=== PATIENT | male | born 1955 | race Caucasian/White ===

== ENCOUNTER 2017-03-05 10:52 | Emergency (ER) | payer OTHER ==
[~2017-03-05 10:52] MED LIST: ASPI325T PO; LORTA10 PO; LORTA5 PO
[2017-03-05 10:53] VITALS: BP 183/94; PULSE 102; RESP 17; TEMP 98.3; O2SAT 97
--- NOTE | 2017-03-05 11:35 | PD ---
HPI Chief Complaint: GI Complaint Time Seen by Provider: 11:35 Travel History International Travel<30 days: No Contact w/Intl Traveler<30days: No Traveled to known affect area: No History of Present Illness HPI 61 YO male presents to the ED for evaluation of 6 month history of left-sided back and flank pain. Gradual onset. Patient denies fevers, chills, anorexia, chest pain, shortness breath, cough, abdominal pain, nausea, vomiting, diarrhea , melena, hematochezia, dysuria. He endorses several chronic orthopedic complaints. The patient states that the pain has worsened over the last 16 days. He was evaluated at urgent care on 02/18 found to have a compression fracture of T11. He was evaluated a second time at [facility] on 02/28 and states no specific diagnoses was given. He states that in the interim his left upper abdomen is "swollen." The patient denies chronic health problems. PFSH Past Medical History Heart Rhythm Problems: No Cardiovascular Problems: Yes High Cholesterol: Yes Chest Pain: Yes Congestive Heart Failure: No Endocrine: No Genitourinary: No Hypertension: Yes Inguinal Hernia: Yes Musculoskeletal: Yes (chronic back pain) Psychiatric: No Reproductive: No Respiratory: No Past Surgical History Abdominal Surgery: Yes (HERNIA REPAIR) Genitourinary Surgery: Yes (VASECTOMY) Other Surgery: Yes (josselyn hernia surgery, left leg pins) Social History Alcohol Use: No Tobacco Use: No Substance Use: No Allergies-Medications (Allergen,Severity, Reaction): Coded Allergies: Baclofen (Verified Allergy, Mild, Dizziness, 03/05/17) HMG-CoA Reductase Inhibitors (Verified Adverse Reaction, Mild, Joint Pain , 03/05/17) muscle soreness Reported Meds & Prescriptions Reported Meds & Active Scripts Active Reported Breeding (Hydrocodone-Acetaminophen) 5-325 mg Tab 1 Tab PO Q6H PRN Aspirin 325 Mg Tab 325 Mg PO DAILY Review of Systems Except as stated in HPI: all other systems reviewed are Neg Physical Exam Narrative GENERAL: Well-nourished, well-developed nontoxic appearing white male in no acute distress. SKIN: Focused skin assessment warm/dry. HEAD: Normocephalic. EYES: No scleral icterus. No injection or drainage. NECK: Supple, trachea midline. No JVD or lymphadenopathy. CARDIOVASCULAR: Regular rate and rhythm without murmurs, gallops, or rubs. RESPIRATORY: Breath sounds clear and equal bilaterally. No accessory muscle use. GASTROINTESTINAL: Abdomen soft, non-tender, nondistended. No hepatosplenomegaly. No palpable mass. Active bowel sounds. There is a small out pouching of the left flank just below the bottom rib. This is nontender. No erythema. MUSCULOSKELETAL: No cyanosis, or edema. Patient is ambulatory, walks with a normal gait, moves extremities spontaneously. BACK: Nontender without obvious deformity. No CVA tenderness. Point tenderness on the lower ribs of the mid back. Data Data Last Documented VS Vital Signs Date Time Temp Pulse Resp B/P Pulse Ox O2 Delivery O2 Flow Rate FiO2 03/05/17 10:53 98.3 102 17 183/94 97 Orders Complete Blood Count With Diff (03/05/17 12:11) Comprehensive Metabolic Panel (03/05/17 12:11) Prothrombin Time / Inr (Pt) (03/05/17 12:11) Act Partial Throm Time (Ptt) (03/05/17 12:11) Urinalysis - C+S If Indicated (03/05/17 12:11) Iv Access Insert/Monitor (03/05/17 12:11) Sodium Chloride 0.9% Flush (Ns Flush) (03/05/17 12:15) Chest, Single Ap (03/05/17 ) Labs Laboratory Tests Test 03/05/17 13:00 White Blood Count 6.1 TH/MM3 Red Blood Count 4.52 MIL/MM3 Hemoglobin 14.1 GM/DL Hematocrit 41.8 % Mean Corpuscular Volume 92.5 FL Mean Corpuscular Hemoglobin 31.2 PG Mean Corpuscular Hemoglobin 33.8 % Concent Red Cell Distribution Width 13.8 % Platelet Count 221 TH/MM3 Mean Platelet Volume 10.1 FL Neutrophils (%) (Auto) 61.7 % Lymphocytes (%) (Auto) 26.6 % Monocytes (%) (Auto) 10.1 % Eosinophils (%) (Auto) 0.9 % Basophils (%) (Auto) 0.7 % Neutrophils # (Auto) 3.7 TH/MM3 Lymphocytes # (Auto) 1.6 TH/MM3 Monocytes # (Auto) 0.6 TH/MM3 Eosinophils # (Auto) 0.1 TH/MM3 Basophils # (Auto) 0.0 TH/MM3 CBC Comment DIFF FINAL Differential Comment Prothrombin Time 10.7 SEC Prothromb Time International 1.0 RATIO Ratio Activated Partial 28.0 SEC Thromboplast Time Urine Color YELLOW Urine Turbidity CLEAR Urine pH 7.5 Urine Specific [place] 1.016 Urine Protein NEG mg/dL Urine Glucose (UA) NEG mg/dL Urine Ketones NEG mg/dL Urine Occult Blood NEG Urine Nitrite NEG Urine Bilirubin NEG Urine Urobilinogen LESS THAN 2.0 MG/DL Urine Leukocyte Esterase NEG Urine RBC 1 /hpf Urine WBC 1 /hpf Microscopic Urinalysis Comment CULT NOT INDICATED Sodium Level 141 MEQ/L Potassium Level 4.6 MEQ/L Chloride Level 106 MEQ/L Carbon Dioxide Level 28.7 MEQ/L Anion Gap 6 MEQ/L Blood Urea Nitrogen 12 MG/DL Creatinine 0.82 MG/DL Estimat Glomerular Filtration 96 ML/MIN Rate Random Glucose 90 MG/DL Calcium Level 8.9 MG/DL Total Bilirubin 0.4 MG/DL Aspartate Amino Transf 21 U/L (AST/SGOT) Alanine Aminotransferase 31 U/L (ALT/SGPT) Alkaline Phosphatase 98 U/L Total Protein 7.3 GM/DL Albumin 4.0 GM/DL [facility] Medical Decision Making Medical Screen Exam Complete: Yes Emergency Medical Condition: Yes Differential Diagnosis musculoskeletal pain versus rib fracture versus referred pain versus AAA versus splenomegaly versus renal mass versus other Narrative Course 61-year-old male presents to the ED for evaluation of 6 month history of left- sided back and flank pain. His only complaint is pain and he denies other somatic symptoms. Patient has been evaluated at an urgent care at outside hospital before presenting today. Vitals reviewed. Physical examination does reveal point tenderness noted left posterior lower rib cage. He does seem to be a little outpouching underneath the left anterior lateral rib but is no palpable mass or tenderness to palpation and deep palpation of the spleen reveals blood megaly or tenderness. I reviewed the patient's CT report of from [facility]. No pancreatic mass or fluid collection is noted. Renal cyst measuring about 4.5 cm on the left side noted and unchanged from comparison study of 04/26/2016. There is no hydronephrosis or nephrolithiasis. No abdominal aortic aneurysm noted. Note is made of a collapsed L1 vertebral body which is old and unchanged per the radiologist. Overall, no acute abnormalities. CBC, CMP, coags, UA unremarkable here. CXR reveals no acute disease per radiology read. I can find no emergent or urgent source for this pain. Patient's instructed to continue with outpatient pain medications, follow up with his primary care provider for further evaluation. They will discharged home. Diagnosis Primary Impression: Chronic back pain Qualified Code: M54.9 - Other chronic back pain Referrals: Primary Care Physician Additional Instructions: Rest, hydrate. Do not believe this back pain is of an emergent nature, follow up with your primary care provider for further evaluation of this chronic problem. Return to the ED for worsening symptoms, or any urgent or emergent medical condition. Disposition: 01 DISCHARGE HOME Condition: Stable Mehnaz Gomez Mar 05, 2017 11:35
[2017-03-05] MEDS ORDERED: NORC5TAB PO (11:44)
[2017-03-05] MEDS ORDERED: ASPI325T PO (11:44)
[2017-03-05] MEDS ORDERED: SODIUM CHLORIDE 0.9% FLUSH 10 ML FLUSH IV FLUSH PRN (12:15)
--- NOTE | 2017-03-05 12:38 | RADRPT ---
EXAM DATE/TIME: 03/05/2017 12:08 [facility] COMPARISON: CHEST SINGLE AP, May 30, 2014, 15:39. INDICATIONS : Left posterior chest pain MEDICAL HISTORY : None. SURGICAL HISTORY : None. ENCOUNTER: Initial ACUITY: 4 - 6 months PAIN SCORE: 6/10 LOCATION: Left chest FINDINGS: A single view of the chest demonstrates the lungs to be symmetrically aerated without evidence of mas s, infiltrate or effusion. The cardiomediastinal contours are unremarkable. Osseous structures are intact. CONCLUSION: No acute disease. No significant change has occurred. Olivier Dolan MD on March 05, 2017 at 12:36 Board Certified Radiologist. This report was verified electronically.
[2017-03-05 13:32] LABS: BLOOD, URINE NEG (NEG); COMMENT (UR) CULT NOT INDICATED; CULTURE IF INDICATED CULT NOT INDICATED; GLUCOSE,URINE NEG (NEG); KETONE, URINE NEG (NEG); NITRITE,URINE NEG (NEG); PH, URINE 7.5 (5.0-8.5); URINE COLOR YELLOW (YELLW/STRAW)
[2017-03-05 13:33] LABS: AUTOMATED NEUTROPHIL # 3.7 TH/MM3 (1.8-7.7); BASOPHIL % 0.7 % (0.0-2.0); EOSINOPHIL # 0.1 TH/MM3 (0-0.4); EOSINOPHIL % 0.9 % (0.0-4.0); HEMATOCRIT 41.8 % (39.0-51.0); HEMO FLAGS DIFF FINAL; LYMPH % 26.6 % (9.0-44.0); LYMPHOCYTE # 1.6 TH/MM3 (1.0-4.8); MEAN CELL VOLUME 92.5 FL (80.0-100.0); MEAN CORPUSCULAR HEMOGLOBIN 31.2 PG (27.0-34.0); MEAN CORPUSCULAR HGB CONC 33.8 % (32.0-36.0); MONO % 10.1 % (0.0-8.0); NEUT % 61.7 % (16.0-70.0); PLATELET COUNT 221 TH/MM3 (150-450); RED BLOOD COUNT 4.52 MIL/MM3 (4.50-5.90); RED CELL DISTRIBUTION WIDTH 13.8 % (11.6-17.2); WHITE BLOOD COUNT 6.1 TH/MM3 (4.0-11.0)
[2017-03-05 13:38] LABS: PROTHROMBIN TIME - PATIENT 10.7 SEC (9.8-11.6)
[2017-03-05 13:49] LABS: ALT (GPT) 31 U/L (12-78); ANION GAP 6 MEQ/L (5-15); AST (GOT) 21 U/L (15-37); BICARBONATE 28.7 MEQ/L (21.0-32.0); BLOOD UREA NITROGEN 12 MG/DL (7-18); CHLORIDE 106 MEQ/L (98-107); GLOMERULAR FILTRATION RATE 96 ML/MIN (>89); POTASSIUM 4.6 MEQ/L (3.5-5.1); SODIUM (NA) 141 MEQ/L (136-145)
[2017-03-05 13:51] LABS: ALKALINE PHOSPHATASE 98 U/L (45-117); TOTAL BILIRUBIN ADULT 0.4 MG/DL (0.2-1.0)
[2017-03-05 14:33] VITALS: BP 123/84; PULSE 66; RESP 15; O2SAT 96
[2017-03-05 14:34] VITALS: BP 123/84
== END 2017-03-05 15:44 | disposition home or self-care (01) ==
LOC: NEPD 10:52
DX: M54.9 Dorsalgia, unspecified (principal); G89.29 Other chronic pain
CPT/HCPCS: 71010; 80053; 81001; 85025; 85610; 85730; 99284

== ENCOUNTER → 2017-10-19 | Outpatient (CLI) | payer OTHER ==
[~2017-10-19] MED LIST changes: +ASPI-183 PO; -ASPI325T PO; +ASPI81TA23 PO; +CALC250T PO; +CHOL5000 PO; +HYDR-3583 PO; -LORTA10 PO; -LORTA5 PO; +NIAC500T67 PO; +NORC5TAB PO; +OMEGCAP PO; +VENTAER INH; +WALKER WHEELS/F1 MIS
--- NOTE | 2017-10-20 14:58 | EKG ---
Date Performed: 10/19/2017 Time Performed: 15:30:20 PTAGE: 62 years EKG: Sinus rhythm Since previous tracing, no significant change noted NORMAL ECG PREVIOUS TRACING : 03/07/2015 11.15 DOCTOR: Tessie Casillas Interpretating Date/Time 10/20/2017 14:55:58
== END ==
LOC: HCAV 15:20
PROVIDERS: ATTEND Orthopaedic Surgery Orthopaedic Surgery of the Spine
DX: Z01.818 Encounter for other preprocedural examination (principal)
CPT/HCPCS: 93005

== ENCOUNTER 2017-10-24 05:07 | Observation (INO) | payer OTHER ==
[~2017-10-24] VITALS: Ht 180.3 cm; Wt 94.1 kg
[~2017-10-24 05:07] MED LIST changes: -ASPI81TA23 PO; -HYDR-3583 PO; -NORC5TAB PO; -WALKER WHEELS/F1 MIS
[2017-10-24] MEDS ORDERED: VANCOMYCIN 1000 MG/NS 250 ML (for <70 kg) IV SCH ×2 (05:30)
[2017-10-24] MEDS ORDERED: METOPROLOL TARTRATE 25 MG TAB PO PRN (05:30)
[2017-10-24] MEDS ORDERED: LACTATED RINGER'S 1000 ML IV PRN (05:30)
[2017-10-24] MEDS ORDERED: CHLORHEXIDINE GLUCONATE 2 % 1 PACK (2 CLOTHS) TOPICAL PRN (05:30)
[2017-10-24] MEDS ORDERED: SODIUM CHLORID 0.9% 500 ML IV PRN (05:30)
[2017-10-24] MEDS ORDERED: POVIDONE IODINE 5% (ANTISEPSIS KIT) 4 APPLICATIONS EACH NARE PRN (05:30)
[2017-10-24] MEDS ORDERED: CHLORHEXIDINE GLUCONATE 4% SOLN 120 ML BTL TOPICAL SCH (05:30)
[2017-10-24] MEDS: ceFAZolin 2 GM PREMIX 50 ML IV SCH ×2 (06:00→07:42)
[2017-10-24] MEDS ORDERED: TRANEXAMIC ACID IV SCH (06:00)
[2017-10-24] MEDS ORDERED: SODIUM CHLORIDE 0.9% IV SCH (06:00)
[2017-10-24] MEDS ORDERED: EXPAREL PERI-ARTICULAR INJECTION (TOTAL VOL. 60 ML) P-ARTICULR SCH ×2 (06:00)
[2017-10-24] MEDS ORDERED: GENTAMICIN SULFATE 80 MG/2 ML VIAL ONE (06:37)
[2017-10-24] MEDS ORDERED: ACETAMINOPHEN 1000 MG/100 ML 100 ML IV ONE (07:07)
[2017-10-24] MEDS ORDERED: PROPOFOL 500 MG/50 ML INJ 100 ML ONE (08:11)
[2017-10-24] MEDS ORDERED: ALBUTEROL SULFATE 90 MCG/ACT HFA 8 GM INHALER INH PRN (09:15)
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
[2017-10-24] MEDS ORDERED: ONDANSETRON HCL 4 MG/2 ML VIAL IVP PRN (09:30)
[2017-10-24] MEDS ORDERED: Post-op Orders (for Pharmacy) XX ONE (09:30)
[2017-10-24] MEDS ORDERED: MAGNESIUM HYDROXIDE SUSP 30 ML CUP PO PRN (09:30)
[2017-10-24] MEDS ORDERED: MORPHINE SULFATE 8 MG/ML INJ IV PUSH PRN (09:30)
[2017-10-24] MEDS ORDERED: diphenhydrAMINE HCL 25 MG CAP PO PRN (09:30)
[2017-10-24] MEDS ORDERED: ASPI81TA23 PO (09:31)
[2017-10-24] MEDS ORDERED: HYDR-3583 PO (09:31)
--- NOTE | 2017-10-24 09:38 | RADRPT ---
EXAM DATE/TIME: 10/24/2017 08:23 [facility] COMPARISON: No previous studies available for comparison. INDICATIONS : Osteotomy left tibia. MEDICAL HISTORY : Healed fracture SURGICAL HISTORY : ENCOUNTER: Initial ACUITY: 1 day PAIN SCORE: Non-responsive. LOCATION: Left tibia FINDINGS: A single portable frontal view of the left lower leg shows an osteotomy within the mid diaphysis with K wire traversing the osteotomy. There is some cortical thickening at the osteotomy site. No angulat ion or distraction in the single projection. CONCLUSION: Single image as detailed above. Max Gaffney Jr., MD on October 24, 2017 at 9:35 Board Certified Radiologist. This report was verified electronically.
[2017-10-24] MEDS: LACTATED RINGER'S 1000 ML INJ 1,000 ML IV SCH ×2 (10:00→20:02)
[2017-10-24] MEDS ORDERED: MIDAZOLAM HCL 2 MG/2 ML VIAL ONE (10:23)
[2017-10-24] MEDS ORDERED: *morphine SULFATE 4 MG/ML PERIprocedure ONLY ONE (11:04)
--- NOTE | 2017-10-24 11:45 | RADRPT ---
EXAM DATE/TIME: 10/24/2017 09:11 [facility] COMPARISON: No previous studies available for comparison. INDICATIONS : Osteotomy and internal fixation of left tibia. MEDICAL HISTORY : None. SURGICAL HISTORY : None. ENCOUNTER: Initial ACUITY: 1 day PAIN SCORE: Non-responsive. LOCATION: Left Tibia FINDINGS: 2 fluoroscopic views of the left tibia and fibula demonstrate osteotomy defect with compression screw and plate and screw fixation of the mid to distal tibial diaphysis. There is anatomic alignment and the hardware appears intact and well-positioned. No significant acute bony fractures. CONCLUSION: 1. Left tibial osteotomy and fixation, as above. Kaden Jimenez MD on October 24, 2017 at 11:41 Board Certified Radiologist. This report was verified electronically.
[2017-10-24] MEDS ORDERED: NEOSTIGMINE 5 MG/5 ML SYRINGE IV PUSH ONE (12:00)
[2017-10-24] MEDS ORDERED: PROPOFOL 200 MG/20 ML AMP IV ONE (12:00)
[2017-10-24] MEDS ORDERED: ePHEDrine/NS 25 MG/5 ML SYRINGE IV ONE (12:00)
[2017-10-24] MEDS ORDERED: ASPIRIN EC 81 MG TABEC PO ONE (12:00)
[2017-10-24] MEDS ORDERED: PHENYLEPH/NS 1000 MCG/10 ML SYR IV ONE (12:00)
[2017-10-24] MEDS: ACETAMINOPHEN/HYDROcodone 325 MG/10 MG TAB PO PRN ×3 (12:20→22:31)
[2017-10-24] MEDS ORDERED: DO NOT ADM ANY ANTICOAGULANT DRUGS PRN (12:30)
[2017-10-24] MEDS: CALCIUM/VITAMIN D 250 MG/125 U TAB PO SCH ×2 (13:00→16:43)
[2017-10-24 15:30] VITALS: BP 117/65; PULSE 64; RESP 18; TEMP 95.5; O2SAT 95
[2017-10-24] MEDS: ASPIRIN EC 81 MG TABEC PO SCH (20:04)
[2017-10-24] MEDS: DOCUSATE SODIUM 50 MG/SENNA 8.6 MG TAB PO SCH (20:04)
[2017-10-24 20:45] VITALS: BP 118/69; PULSE 67; RESP 17; TEMP 96.9; O2SAT 95
[2017-10-24] MEDS ORDERED: TEMAZEPAM 15 MG CAP PO ONE (22:15)
[2017-10-25 00:55] VITALS: BP 109/64; PULSE 75; RESP 17; TEMP 96.8; O2SAT 95
[2017-10-25] MEDS: ACETAMINOPHEN/HYDROcodone 325 MG/10 MG TAB PO PRN ×3 (04:12→15:13)
[2017-10-25 04:45] VITALS: BP 136/74; PULSE 68; RESP 17; TEMP 96.7; O2SAT 96
[2017-10-25] MEDS: LACTATED RINGER'S 1000 ML INJ 1,000 ML IV SCH (05:23)
[2017-10-25] MEDS: DOCUSATE SODIUM 50 MG/SENNA 8.6 MG TAB PO SCH (07:58)
[2017-10-25] MEDS: CALCIUM/VITAMIN D 250 MG/125 U TAB PO SCH ×2 (07:59→13:32)
[2017-10-25] MEDS: ASPIRIN EC 81 MG TABEC PO SCH (07:59)
[2017-10-25 08:00] VITALS: BP 125/72; PULSE 69; RESP 16; TEMP 97.4; O2SAT 97
[2017-10-25] MEDS ORDERED: MULTIVITAMINS/MINERALS THERAPEUTIC TAB PO SCH (09:00)
[2017-10-25 11:52] VITALS: RESP 17
[2017-10-25] MEDS ORDERED: WALKER WHEELS/F1 MIS (13:21)
--- NOTE | 2017-10-25 13:21 | HHI.DCPOC ---
Discharge Care Plan Diagnosis: (1) Deformity of left tibia Your Health Problems Are: Incision/Drains Inflammation Goals to Promote Your Health * To prevent worsening of your condition and complications * To maintain your health at the optimal level Directions to Meet Your Goals Take your medications as prescribed Follow your dietary instruction Follow activity as directed Keep your appointments as scheduled Take your immunizations and boosters as scheduled If your symptoms worsen call your PCP, if no PCP go to Urgent Care Center or Emergency Room Smoking is Dangerous to Your Health. Avoid second hand smoke Call the 24-hour hour crisis hotline for domestic abuse at Angelina Song Oct 25, 2017 13:21
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
--- NOTE | 2017-10-25 13:24 | PD.ORT.PN ---
Subjective Subjective Remarks Left leg pain moderately controlled. No new CP or SOB. Appetite 'ok'. Questions about surgery. Prefers to go home today. Objective Vitals Vital Signs Date Time Temp Pulse Resp B/P (MAP) Pulse Ox O2 Delivery O2 Flow Rate FiO2 10/25/17 11:52 17 10/25/17 08:00 97.4 69 16 125/72 (89) 97 10/25/17 04:45 96.7 68 17 136/74 (94) 96 10/25/17 00:55 96.8 75 17 109/64 (79) 95 10/24/17 20:45 96.9 67 17 118/69 (85) 95 10/24/17 15:30 95.5 64 18 117/65 (82) 95 10/24/17 14:30 98.1 66 16 117/66 (83) 94 Room Air I/O 10/24/17 10/24/17 10/24/17 10/25/17 10/25/17 10/25/17 07:00 15:00 23:00 07:00 15:00 23:00 Intake Total 1360 ml 1360 ml 950 ml Output Total 5 ml 1450 ml 2200 ml Balance 1355 ml -90 ml -1250 ml Intake Oral 360 ml 360 ml 480 ml IV Total 1000 ml 1000 ml 470 ml Output Urine Total 1450 ml 2200 ml Estimated Blood Loss 5 ml # Bowel Movements 0 0 Procedures Osteotomy left tibia with internal fixation Objective Remarks Sitting up in bed NAD Splint on left LLE Splint intact, mild swelling toes, no erythema +motor at/ehl, +sens, +nvi Calf supple Assessment & Plan Ortho Post Op Day #: 1 Problem List: (1) Deformity of left tibia ICD Codes: M21.962 - Unspecified acquired deformity of left lower leg Assessment and Plan pod#1 s/p Osteotomy left tibia with internal fixation Ortho stable. Pain controlled. Ok to d/c home. No HHC needed. Watson 10mg written. ASA 81mg written for 30 days. Keep splint clean and dry. TTWBing LLE for 8-10 weeks. F/U in 2 weeks as scheduled. Walker written if needed. Angelina Song Oct 25, 2017 13:24
== END 2017-10-25 15:38 | disposition home or self-care (01) ==
LOC: HSDC 05:07 → HSDI 09:28 → N06B 14:48
PROVIDERS: ADMIT Orthopaedic Surgery Orthopaedic Surgery of the Spine; ATTEND Orthopaedic Surgery Orthopaedic Surgery of the Spine
DX: S82.302 Unspecified fracture of lower end of left tibia (principal); M21.962 Unspecified acquired deformity of left lower leg; M17.12 Unilateral primary osteoarthritis, left knee; X58.XXXD Exposure to other specified factors, subsequent encounter
CPT/HCPCS: 01480; 20680; 27827; 73590; 76000; 86850; 86900; 86901; 86920; 94150; 96361; 96365; 96366; 96375; 97161; C1713; C9290; G0378; G8987; G8988; J0131; J0690; J1580; J2250; J2270; J2370; J2710; J3010; J3370; J7050; J7120

== ENCOUNTER 2018-04-17 15:22 | Inpatient (IN) ==
[2018-04-17] MEDS ORDERED: Metoprolol Inj 5 MG/5 ML Vial IV.PUSH ONE ×2 (16:12→17:23)
--- NOTE | 2018-04-17 16:16 | ED ---
HPI General Chief complaint: Chest Pain Stated complaint: A-FIB/Chest Pain Time Seen by Provider: 04/17/18 16:11 Source: patient, RN notes reviewed and old records reviewed Mode of arrival: ambulatory History of Present Illness HPI narrative: 63yM presenting with lightheadedness. The patient states that for the past 2 months "my heart's been acting up"; he has had episodes of lightheadedness and palpitations. He saw his PMD, who sent him for an EKG and echo, which were reportedly normal. He says that he went for a routine follow- up appointment today and was sent to the ED as his heart rate was elevated. He denies any symptoms at present, and specifically denies chest pain, dizziness, diaphoresis, shortness of breath, or palpitations. Family history significant for sister with pericardial effusion. Related Data Home Medications Medication Instructions Recorded Confirmed aspirin 81 mg PO DAILY 04/17/18 04/17/18 temazepam 22.5 mg PO PRN PRN 04/17/18 04/17/18 Allergies Allergy/AdvReac Type Severity Reaction Status Date / Time baclofen Allergy Intermediate Dizziness Verified 04/17/18 16:22 amlodipine AdvReac Intermediate Joint Pain Verified 04/17/18 16:22 atorvastatin AdvReac Intermediate Joint Pain Verified 04/17/18 16:22 pravastatin AdvReac Intermediate Joint Pain Verified 04/17/18 16:22 simvastatin AdvReac Intermediate Joint Pain Verified 04/17/18 16:22 Review of Systems ROS: all other systems reviewed are negative Constitutional Denies fever(s) Cardiovascular Denies chest pain and Denies palpitations Respiratory Denies cough Gastrointestinal Denies nausea Genitourinary Denies dysuria Musculoskeletal Denies back pain Neurologic Denies confusion Psychiatric Denies confusion PMFSH History History Provided By: Patient Medical History Medical History Hx of fracture of lower leg (Acute) Irregular heart beat (Acute) Social History Social History Substance History: No History of Abuse Second Hand Smoke Exposure: No Smoking Status: Never smoker How Often Do You Have a Drink Containing Alcohol: Never Recent Travel in [facility] within the Last 8 Weeks: No Recent Out of Country Travel within the Last 8 Weeks: No Immunization History Tetanus Immunization: >5 Years Hx Influenza Vaccine This Season: Yes Exam Const General: healthy appearing and no acute distress HENMT Head: normocephalic and atraumatic Face and sinus: normal facial exam Eyes General: appearance normal, both eyes and all related structures Pupils: PERRL Chest Chest: normal inspection of the chest Resp Effort & Inspection: normal respiratory effort Auscultation: no rhonchi and no wheezes Cardio Other: Irregularly irregular, heart rate 100s-130s on monitor GI Inspection: non-distended Palpation: soft and nontender Skin General: no rashes or lesions noted Neuro General: alert, awake, oriented x3 and no focal motor deficits Psych Affect: normal affect Course Initial Documented Vital Signs Temperature 98 F 04/17/18 15:27 Pulse Rate 76 04/17/18 15:27 Respiratory Rate 20 04/17/18 15:27 Blood Pressure 132/84 04/17/18 15:27 Pulse Oximetry 96 04/17/18 15:27 Last Documented Vital Signs Temperature 97.7 F 04/17/18 15:30 Pulse Rate 65 04/17/18 17:27 Respiratory Rate 18 04/17/18 17:27 Blood Pressure 138/90 04/17/18 17:27 Pulse Oximetry 97 04/17/18 17:27 Medical Decision Making [facility] Narrative Medical decision making narrative: Assessment: 63yM presenting with new onset A fib Plan: EKG and monitor Rate control CXR Labs Addendum: Patient found to have new-onset A fib, labs unremarkable, rate controlled after 1 dose of lopressor IV. This patient will need cardiac monitoring and further workup/ likely anticoagulation. I explained these results to the patient as well as plan to keep him in the hospital; he understands and agrees. Case discussed with Dr. Kelly of [facility]. Differential Diagnosis Differential Diagnosis: Differential diagnosis includes, but is not limited to: Atrial fibrillation, anemia, electrolyte abnormality, thyroid disease, cardiomyopathy Medical Records Medical records reviewed: Yes I reviewed the patient's medical records. Lab Data Lab results reviewed: Yes I reviewed the patient's lab results. Result diagrams: 04/17/18 16:17 04/17/18 16:17 Lab Results 04/17/18 04/17/18 04/17/18 Range/Units 16:17 16:17 16:17 WBC 6.2 (4.0-11.0) th/mm3 RBC 4.78 (4.50-5.90) mil/mm3 Hgb 14.8 (13.0-17.0) gm/dL Hct 44.7 (39.0-51.0) % MCV 93.5 (80.0-100.0) fL MCH 31.0 (27.0-34.0) pg MCHC 33.1 (32.0-36.0) % RDW 14.9 (11.6-17.2) % Plt Count 217 (150-450) th/mm3 MPV 11.0 (7.0-11.0) fL Neut % (Auto) 57.9 (16.0-70.0) % Lymph % (Auto) 29.9 (9.0-44.0) % [place] % (Auto) 10.5 H (0.0-8.0) % Eos % (Auto) 0.7 (0.0-4.0) % Baso % (Auto) 1.0 (0.0-2.0) % Neut # (Auto) 3.6 (1.8-7.7) th/mm3 Lymph # (Auto) 1.9 (1.0-4.8) th/mm3 [place] # (Auto) 0.6 (0.0-0.9) th/mm3 Eos # (Auto) 0.0 (0.0-0.4) th/mm3 Baso # (Auto) 0.1 (0.0-0.2) th/mm3 WBC Differential . Differential Comment Auto diff final PT 10.7 (9.8-11.6) sec INR 1.1 Ratio APTT 26.4 (24.3-30.1) sec Sodium 141 (136-145) meq/L Potassium 4.2 (3.5-5.1) meq/L Chloride 104 (98-107) meq/L Carbon Dioxide 27.3 (21.0-32.0) meq/L Anion Gap 10 (5-15) meq/L BUN 13 (7-18) mg/dL Creatinine 0.86 (0.60-1.30) mg/dL Estimated GFR Greater than 89 (>89) mL/min Random Glucose 89 (74-106) mg/dL Calcium 9.3 (8.5-10.1) mg/dL Troponin I Less than 0.02 L (0.02-0.05) ng/mL TSH (0.358-3.740) uIU/mL 04/17/18 Range/Units 16:17 WBC (4.0-11.0) th/mm3 RBC (4.50-5.90) mil/mm3 Hgb (13.0-17.0) gm/dL Hct (39.0-51.0) % MCV (80.0-100.0) fL MCH (27.0-34.0) pg MCHC (32.0-36.0) % RDW (11.6-17.2) % Plt Count (150-450) th/mm3 MPV (7.0-11.0) fL Neut % (Auto) (16.0-70.0) % Lymph % (Auto) (9.0-44.0) % Vermilion % (Auto) (0.0-8.0) % Eos % (Auto) (0.0-4.0) % Baso % (Auto) (0.0-2.0) % Neut # (Auto) (1.8-7.7) th/mm3 Lymph # (Auto) (1.0-4.8) th/mm3 Vermilion # (Auto) (0.0-0.9) th/mm3 Eos # (Auto) (0.0-0.4) th/mm3 Baso # (Auto) (0.0-0.2) th/mm3 WBC Differential Differential Comment PT (9.8-11.6) sec INR Ratio APTT (24.3-30.1) sec Sodium (136-145) meq/L Potassium (3.5-5.1) meq/L Chloride (98-107) meq/L Carbon Dioxide (21.0-32.0) meq/L Anion Gap (5-15) meq/L BUN (7-18) mg/dL Creatinine (0.60-1.30) mg/dL Estimated GFR (>89) mL/min Random Glucose (74-106) mg/dL Calcium (8.5-10.1) mg/dL Troponin I (0.02-0.05) ng/mL TSH 2.990 (0.358-3.740) uIU/mL Imaging Data Radiologist's impression: Chest X-Ray 04/17/18 15:32 CONCLUSION: No acute cardiopulmonary process. No significant change from prior. ECG Data Attestation: I personally reviewed and interpreted this ECG as follows: Interpretation: Rate: 60-150 BPM Rhythm: Atrial fibrillation [place]: Normal Intervals: Normal intervals, no blocks, QTc 365 ms Q waves: III, V2 T waves: Upright, no inversions ST segments: Depressions in V4-V5, no elevations Impression: New-onset atrial fibrillation with rapid ventricular response, lateral ST depressions. Discharge Plan Discharge Disposition Patient Disposition: 30 Still Patient Discharge Details Diagnosis: Atrial fibrillation, new onset, Atrial fibrillation with RVR Physicians Team ED Provider: Hazel Gamboa Primary Care Provider: UNKNOWN, Rxs /Orders / Referrals /Forms Prescriptions: No Action aspirin 81 mg Tablet,Chewable 81 mg PO DAILY RF: 0 temazepam 22.5 mg Capsule 22.5 mg PO PRN PRN (Reason: Insomnia) RF: 0 Discharge Instructions Patient Printed Instructions: Chest Pain (ED) Discharge Interventions Interventions: Vital Signs Last Done: 04/17/18 15:30 Status ED Status: With Doctor
--- NOTE | 2018-04-17 16:27 | XR ---
EXAM DATE: 04/17/2018 3:48 PM EDT AGE/SEX: 63 years / Male INDICATIONS: Chest pain and light headed, sent by doctor to evaluate A-fib CLINICAL DATA: This is the patient's initial encounter. Patient reports that signs and symptoms have been present for 2 days and indicates a pain score of 2/10. MEDICAL/SURGICAL HISTORY: . A-fib None. COMPARISON: [facility], XR CHEST PA AND LAT, 10/18/2017. . FINDINGS: A single AP view of the chest demonstrates the lungs to be symmetrically aerated without evidence of mass, infiltrate or effusion. The cardiomediastinal contours are unremarkable. Osseous structures a re intact with a mild dextroscoliosis of lower dorsal spine. CONCLUSION: No acute cardiopulmonary process. No significant change from prior. Electronically signed by: Jimbo Ortiz MD 04/17/2018 4:26 PM EDT
[2018-04-17 16:37] LABS: Baso # (Auto) 0.1 th/mm3 (0.0-0.2); Eos % (Auto) 0.7 % (0.0-4.0); Hematocrit 44.7 % (39.0-51.0); Hemoglobin 14.8 gm/dL (13.0-17.0); Lymph # (Auto) 1.9 th/mm3 (1.0-4.8); Lymph % (Auto) 29.9 % (9.0-44.0); Mean Corpuscular HGB Conc 33.1 % (32.0-36.0); Mean Corpuscular Volume 93.5 fL (80.0-100.0); Mono # (Auto) 0.6 th/mm3 (0.0-0.9); Mono % (Auto) 10.5 % (0.0-8.0); Neut # (Auto) 3.6 th/mm3 (1.8-7.7); Neut % (Auto) 57.9 % (16.0-70.0); Platelet Count 217 th/mm3 (150-450); Red Blood Count 4.78 mil/mm3 (4.50-5.90); Red Cell Distribution Width 14.9 % (11.6-17.2); White Blood Count 6.2 th/mm3 (4.0-11.0)
[2018-04-17 16:56] LABS: Activated Partial Thrombo Time 26.4 sec (24.3-30.1); INR 1.1 Ratio; Prothrombin Time 10.7 sec (9.8-11.6)
[2018-04-17 17:02] LABS: Anion Gap 10 meq/L (5-15); Blood Urea Nitrogen 13 mg/dL (7-18); Calcium 9.3 mg/dL (8.5-10.1); Carbon Dioxide 27.3 meq/L (21.0-32.0); Chloride 104 meq/L (98-107); Glomerular Filtration Rate Greater Than 89 mL/min (>89); Glucose,Random 89 mg/dL (74-106); Potassium 4.2 meq/L (3.5-5.1); Sodium 141 meq/L (136-145)
[2018-04-17] MEDS ORDERED: Metoprolol Tartrate 25 MG Tablet PO ONE (17:43)
[2018-04-17] MEDS ORDERED: Docusate Sodium 100 MG Capsule PO PRN (17:56)
[2018-04-17] MEDS ORDERED: Aluminum/Magnesium/Simethacone Susp 30 ML UDC PO PRN (17:56)
[2018-04-17] MEDS ORDERED: Temazepam 15 MG Capsule PO PRN (17:56)
[2018-04-17] MEDS ORDERED: Acetaminophen 325 MG Tablet PO PRN (17:56)
[2018-04-17] MEDS ORDERED: Senna/Docusate Sodium 8.6/50 MG Tablet PO PRN (17:56)
[2018-04-17] MEDS ORDERED: Naloxone Inj 0.4 MG/ML Vial IV.PUSH PRN (17:57)
[2018-04-17] MEDS ORDERED: oxyCODONE/Acetaminophen 10/325 Tablet PO PRN (17:57)
[2018-04-17] MEDS ORDERED: Morphine Inj 4 MG/ML Vial IV.PUSH PRN ×2 (17:57)
--- NOTE | 2018-04-17 18:51 | P.HPIM ---
History of Present Illness Service: [facility] Primary Care Physician: MIC Chief Complaint: CHEST PAIN History of Present Illness: Patient is a 63-year-old gentleman who presented to the emergency department today with lightheadedness. Patient states he has been having this for the past 2 months "my heart is been a acting up". Patient has had multiple episodes of lightheadedness and palpitations. He saw his primary medical doctor who sent him for an EKG and echo which were supposedly normal. He states he went for his routine follow-ups appointment today and then was sent to the emergency department as his heart rate was elevated. On EKG it was noted that he was in atrial fibrillation. He denied any symptoms at present. He denies any chest pain dizziness denies any patient family history is significant for sister with pericardial effusion and mother who needed a pacemaker but never got one. Past medical history includes anxiety and recent fracture of left leg with repair Inpatient Certification: I certify that the inpatient services were ordered in accordance with Medicare regulations governing the order. This includes certification that hospital inpatient services are reasonable and necessary and in the case of services not specified as inpatient-only under 42 CFR 419.22(n), that they are appropriately provided as inpatient services in accordance to with the 2-midnight benchmark under 43 CFR 412.3(e) Estimated Total Length of Stay (Days): 3 Plans for Post Hospital Care: Not yet determined Review of Systems All other systems reviewed negative except as stated in HPI Cardiovascular: Reports chest pain, Reports fast heart rate, Reports lightheadedness, Reports rapid, pounding, or irregular heartbeat, Reports shortness of breath, Reports shortness of breath with activity [facility] - History History Provided By: Patient - Medical History Medical History: Medical History (Last Updated 04/17/18 @ 18:46 by Giuseppe Kelly DO) Fracture of left leg Hx of fracture of lower leg Irregular heart beat - Surgical History Surgical History: Surgical History (Last Updated 04/17/18 @ 18:46 by Giuseppe Kelly DO) H/O hernia repair H/O vasectomy - Family History Family History: Family History (Last Updated 04/17/18 @ 18:47 by Giuseppe Kelly DO) Other Family history of hypertension - Tobacco History Second Hand Smoke Exposure: No Smoking Status: Never smoker - Alcohol History How Often Do You Have a Drink Containing Alcohol: Never - Substance Use History Substance History: No History of Abuse - Travel History History of Recent Travel: No Recent Travel in the [place] Within the Last 8 Weeks: No Recent Travel Out of the Country Within the Last 8 Weeks: No - Immunization History Tetanus Immunization: >5 Years Hx Influenza Vaccine This Season: Yes Medications and Allergies Active Medications: Active Medications Acetaminophen (Tylenol) 650 mg PO Q4H PRN PRN Reason: Temp > 100.4 Al Hydrox/Mg Hydrox/Simethicone (Mag-Al Plus Susp Liq) 30 ml PO Q6H PRN PRN Reason: DYSPEPSIA Al Hydroxide/Mg Hydroxide (Milk Of Magnesia Liq) 30 ml PO DAILY PRN PRN Reason: SEVERE CONSITIPATION Aspirin (Aspirin) 325 mg PO DAILY ISAIAH Docusate Sodium (Colace) 100 mg PO BID PRN PRN Reason: CONSTIPATION Enoxaparin Sodium (Lovenox Inj) 90 mg SQ Q12H ISAIAH Metoprolol Tartrate (Lopressor) 25 mg PO BID ISAIAH Morphine Sulfate (Morphine Inj) 2 mg IV.PUSH Q3H PRN PRN Reason: PAIN 3-5; IF UABLE TO TAKE PO Morphine Sulfate (Morphine Inj) 4 mg IV.PUSH Q3H PRN PRN Reason: PAIN 6-10;IF UNABLE TO TAKE PO Naloxone HCl (Narcan Inj) 0.4 mg IV.PUSH UNSCH PRN PRN Reason: SEE LABEL COMMENTS Ondansetron HCl (Zofran Inj) 4 mg IV.PUSH Q6H PRN PRN Reason: NAUSEA Oxycodone/Acetaminophen (Percocet 10/325 Mg) 1 tab PO Q6H PRN PRN Reason: PAIN SCALE 6 TO 10 Oxycodone/Acetaminophen (Percocet 5/325 Mg) 1 tab PO Q6H PRN PRN Reason: PAIN SCALE 3 TO 5 Senna/Docusate Sodium (Neida-Colace) 1 tab PO BID PRN PRN Reason: CONSTIPATION Sodium Chloride (Ns Flush) 2 ml IV.FLUSH PRN PRN PRN Reason: FLUSH AFTER USING IV ACCESS Sodium Chloride (Ns Flush) 2 ml IV.FLUSH BID ISAIAH Temazepam (Restoril) 15 mg PO HS PRN PRN Reason: INSOMNIA Allergies Allergy/AdvReac Type Severity Reaction Status Date / Time baclofen Allergy Intermediate Dizziness Verified 04/17/18 16:22 amlodipine AdvReac Intermediate Joint Pain Verified 04/17/18 16:22 atorvastatin AdvReac Intermediate Joint Pain Verified 04/17/18 16:22 pravastatin AdvReac Intermediate Joint Pain Verified 04/17/18 16:22 simvastatin AdvReac Intermediate Joint Pain Verified 04/17/18 16:22 Home Medications Medication Instructions Recorded Confirmed Type aspirin 81 mg PO DAILY 04/17/18 04/17/18 History temazepam 22.5 mg PO PRN PRN 04/17/18 04/17/18 History Exam Vital signs: Vital Signs 04/17/18 15:27 04/17/18 15:30 04/17/18 15:32 Temperature 98 F 97.7 F Pulse Rate 76 132 H 138 H Respiratory Rate 20 18 Blood Pressure 132/84 127/85 Pulse Oximetry 96 99 99 04/17/18 17:27 Temperature Pulse Rate 65 Respiratory Rate 18 Blood Pressure 138/90 Pulse Oximetry 97 Intake & Output 04/16/18 04/17/18 04/17/18 18:59 06:59 18:59 Weight 92.079 kg Other: # Voids 1 Narrative: GENERAL: Awake alert and oriented 3 talkative and cooperative SKIN: Warm and dry. HEAD: Atraumatic. Normocephalic. EYES: Pupils equal and round. No scleral icterus. No injection or drainage. Extraocular muscles intact ENT: No nasal bleeding or discharge. Mucous membranes pink and moist. Wears hearing aids NECK: Trachea midline. No JVD. Supple CARDIOVASCULAR: IRRegular rate and rhythm. S1-S2 no S3 or S4 currently in A. fib in the 60s and 70 RESPIRATORY: No accessory muscle use. Clear to auscultation. Breath sounds equal bilaterally. GASTROINTESTINAL: Abdomen soft, non-tender, nondistended. Hepatic and splenic margins not palpable. MUSCULOSKELETAL: Extremities without clubbing, cyanosis, or edema. No obvious deformities. NEUROLOGICAL: Awake and alert. No obvious cranial nerve deficits. Motor grossly within normal limits. Five out of 5 muscle strength in the arms and legs. Normal speech. PSYCHIATRIC: Appropriate mood and affect; insight and judgment normal. Results - Labs CBC & Chem 7: 04/17/18 16:17 04/17/18 16:17 Labs: Short CBC 04/17/18 Range/Units 16:17 WBC 6.2 (4.0-11.0) th/mm3 Hgb 14.8 (13.0-17.0) gm/dL Hct 44.7 (39.0-51.0) % Plt Count 217 (150-450) th/mm3 BMP 04/17/18 16:17 Sodium 141 Potassium 4.2 Chloride 104 Carbon Dioxide 27.3 BUN 13 Creatinine 0.86 Calcium 9.3 Cardiac Enzymes 04/17/18 Range/Units 16:17 Troponin I Less than 0.02 L (0.02-0.05) ng/mL - Imaging Impressions Chest X-Ray 04/17/18 15:32 CONCLUSION: No acute cardiopulmonary process. No significant change from prior. Caprini VTE Risk Assessment Caprini VTE Risk Assessment: Moderate/High Risk (score >= 2) Caprini Risk Assessment Model: Point Value = 1 Point Value = 2 Point Value = 3 Point Value = 5 Age 41-60 Minor surgery BMI > 25 kg/m2 Swollen legs Varicose veins or History of unexplained or recurrent spontaneous Oral contraceptives or hormone replacement Sepsis (< 1 month) Serious lung disease, including pneumonia (< 1 month) Abnormal pulmonary function Acute myocardial infarction Congestive heart failure (< 1 month) History of inflammatory bowel disease Medical patient at bed rest Age 61-74 Arthroscopic surgery Major open surgery (> 45 min) Laparoscopic surgery (> 45 min) Malignancy Confined to bed (> 72 hours) Immobilizing plaster cast Central venous access Age >= 75 History of VTE Family history of VTE Factor V Leiden Prothrombin [id number] Lupus anticoagulant Anticardiolipin antibodies Elevated serum homocysteine Heparin-induced thrombocytopenia Other congenital or acquired thrombophilia Stroke (< 1 month) Elective arthroplasty Hip, pelvis, or leg fracture Acute spinal cord injury (< 1 month) Prophylaxis Regimen: Total Risk Factor Score Risk Level Prophylaxis Regimen 0-1 Low Early ambulation 2 Moderate Order ONE of the following: *Sequential Compression Device (SCD) *Heparin 5000 units SQ BID 3-4 Higher Order ONE of the following medications: *Heparin 5000 units SQ TID *Enoxaparin/Lovenox 40 mg SQ daily (WT < 150 kg, CrCl > 30 mL/min) *Enoxaparin/Lovenox 30 mg SQ daily (WT < 150 kg, CrCl > 10-29 mL/min) *Enoxaparin/Lovenox 30 mg SQ BID (WT < 150 kg, CrCl > 30 mL/min) AND/OR *Sequential Compression Device (SCD) 5 or more Highest Order ONE of the following medications: *Heparin 5000 units SQ TID (Preferred with Epidurals) *Enoxaparin/Lovenox 40 mg SQ daily (WT < 150 kg, CrCl > 30 mL/min) *Enoxaparin/Lovenox 30 mg SQ daily (WT < 150 kg, CrCl > 10-29 mL/min) *Enoxaparin/Lovenox 30 mg SQ BID (WT < 150 kg, CrCl > 30 mL/min) AND *Sequential Compression Device (SCD) Assessment and Plan - Plan New onset paroxysmal atrial fibrillation continue on anticoagulation with Lovenox We will get another echocardiogram Consult cardiology Start on metoprolol twice daily Trend troponins and cardiac enzymes Continue on aspirin Anxiety resume home medications at home Insomnia chronically takes medications for sleep at home Chronic arthritis with need for multiple surgeries on neck and shoulders Need for probable chronic anticoagulation Continue DVT and GI prophylaxis With Lovenox and Pepcid Code Status: Full code Discussed Condition With: RN and patient and emergency room physician Discharge Planning: Pending cardiac clearance
[2018-04-17 18:53] LABS: Activated Partial Thrombo Time 27.1 sec (24.3-30.1); INR 1.1 Ratio; Prothrombin Time 10.7 sec (9.8-11.6)
[2018-04-17 18:57] LABS: Albumin 4.3 g/dL (3.4-5.0); Anion Gap 8 meq/L (5-15); Aspartate Aminotransferase 17 U/L (15-37); Blood Urea Nitrogen 14 mg/dL (7-18); Calcium 9.3 mg/dL (8.5-10.1); Chloride 102 meq/L (98-107); Glomerular Filtration Rate Greater Than 89 mL/min (>89); Glucose,Random 83 mg/dL (74-106); Magnesium 2.1 mg/dL (1.5-2.5); Potassium 4.4 meq/L (3.5-5.1); Sodium 138 meq/L (136-145)
[2018-04-17 18:58] LABS: Alanine Aminotransferase 27 U/L (12-78); T4 (Thyroxine) 11.1 mcg/dL (4.5-12.1)
[2018-04-17 19:02] LABS: Alkaline Phosphatase 135 U/L (45-117); Creatine Kinase 102 U/L (39-308); Total Protein 7.6 g/dL (6.4-8.2)
[2018-04-17] MEDS: Metoprolol Tartrate 25 MG Tablet PO SCH (20:21)
[2018-04-17] MEDS: Enoxaparin Inj 100 MG/ML Syringe SQ SCH (20:21)
[2018-04-17] MEDS: Aspirin 325 MG Tablet PO SCH (20:21)
[2018-04-18 07:53] LABS: Eos # (Auto) 0.1 th/mm3 (0.0-0.4); Eos % (Auto) 1.7 % (0.0-4.0); Hematocrit 42.8 % (39.0-51.0); Hemoglobin 14.4 gm/dL (13.0-17.0); Lymph # (Auto) 2.3 th/mm3 (1.0-4.8); Lymph % (Auto) 51.7 % (9.0-44.0); Mean Corpuscular HGB Conc 33.6 % (32.0-36.0); Mean Corpuscular Hemoglobin 31.4 pg (27.0-34.0); Mean Corpuscular Volume 93.5 fL (80.0-100.0); Mean Platelet Volume 11.1 fL (7.0-11.0); Mono # (Auto) 0.5 th/mm3 (0.0-0.9); Mono % (Auto) 10.7 % (0.0-8.0); Neut # (Auto) 1.5 th/mm3 (1.8-7.7); Neut % (Auto) 34.9 % (16.0-70.0); Platelet Count 194 th/mm3 (150-450); Red Blood Count 4.58 mil/mm3 (4.50-5.90); Red Cell Distribution Width 14.6 % (11.6-17.2); White Blood Count 4.4 th/mm3 (4.0-11.0)
[2018-04-18 08:02] LABS: INR 1.1 Ratio; Prothrombin Time 10.9 sec (9.8-11.6)
[2018-04-18 08:27] LABS: Albumin 3.9 g/dL (3.4-5.0); Anion Gap 8 meq/L (5-15); Aspartate Aminotransferase 18 U/L (15-37); Blood Urea Nitrogen 15 mg/dL (7-18); Calcium 9.1 mg/dL (8.5-10.1); Carbon Dioxide 28.7 meq/L (21.0-32.0); Chloride 104 meq/L (98-107); Glomerular Filtration Rate Greater Than 89 mL/min (>89); Glucose,Random 72 mg/dL (74-106); Magnesium 2.2 mg/dL (1.5-2.5); Potassium 4.3 meq/L (3.5-5.1); Sodium 141 meq/L (136-145)
[2018-04-18 08:28] LABS: Alanine Aminotransferase 24 U/L (12-78); Cholesterol 189 mg/dL (120-200); Phosphorus 3.8 mg/dL (2.5-4.9)
[2018-04-18 08:31] LABS: Alkaline Phosphatase 126 U/L (45-117); Chol/HDL Ratio 3.72 Ratio; HDL Cholesterol 50.7 mg/dL (40.0-60.0); LDL Cholesterol,Calculated 128 mg/dL (0-99); Total Protein 6.9 g/dL (6.4-8.2); Triglycerides 53 mg/dL (42-150)
[2018-04-18] MEDS: Enoxaparin Inj 100 MG/ML Syringe SQ SCH (08:34)
[2018-04-18] MEDS: Aspirin 325 MG Tablet PO SCH (08:34)
[2018-04-18] MEDS: Metoprolol Tartrate 25 MG Tablet PO SCH (08:34)
[2018-04-18 08:39] LABS: Creatine Kinase 88 U/L (39-308)
[2018-04-18 10:03] VITALS: O2SAT 96
[2018-04-18 12:58] VITALS: BP 123/80; RESP 18; TEMP 97.9
--- NOTE | 2018-04-18 13:11 | P.PNIM ---
Subjective Interval history: Patient says he is feeling well. Denies any chest pain or palpitations. Feels like going home. Physical Exam Vital signs: Vital Signs 04/17/18 15:27 04/17/18 15:30 04/17/18 15:32 Temperature 98 F 97.7 F Pulse Rate 76 132 H 138 H Respiratory Rate 20 18 Blood Pressure 132/84 127/85 Pulse Oximetry 96 99 99 04/17/18 17:27 04/17/18 19:00 04/17/18 20:00 Temperature Pulse Rate 65 62 64 Respiratory Rate 18 18 18 Blood Pressure 138/90 129/75 115/72 Pulse Oximetry 97 99 99 04/17/18 20:32 04/17/18 21:00 04/17/18 22:00 Temperature Pulse Rate 64 66 60 Respiratory Rate Blood Pressure Pulse Oximetry 04/17/18 22:13 04/17/18 23:00 04/18/18 00:00 Temperature 97.8 F 97.7 F Pulse Rate 65 65 58 L Respiratory Rate 14 16 Blood Pressure 142/103 H 125/74 Pulse Oximetry 100 100 04/18/18 01:00 04/18/18 02:00 04/18/18 03:00 Temperature 97.9 F Pulse Rate 62 58 L 54 L Respiratory Rate 16 Blood Pressure 112/70 Pulse Oximetry 99 04/18/18 04:00 04/18/18 05:00 04/18/18 06:00 Temperature Pulse Rate 52 L 48 L 56 L Respiratory Rate Blood Pressure Pulse Oximetry 04/18/18 07:00 04/18/18 08:00 04/18/18 09:00 Temperature 97.8 F Pulse Rate 58 L 65 63 Respiratory Rate Blood Pressure 119/76 Pulse Oximetry 98 04/18/18 10:02 04/18/18 11:00 Temperature 97.9 F Pulse Rate 60 Respiratory Rate 18 Blood Pressure 123/80 Pulse Oximetry 96 Intake & Output 04/17/18 04/18/18 04/18/18 18:59 06:59 18:59 Intake Total 820 / 820 Output Total 1100 / 1100 Balance -280 / -280 Weight 92.079 kg 92 kg Intake: Oral 820 / 820 Output: Urine 1100 / 1100 Other: # Voids 1 Date of Last Bowel Movement 04/17/18 04/17/18 Narrative: GENERAL: Patient sitting up in bed. Appears comfortable. SKIN: Warm and dry. HEAD: Normocephalic. EYES: No scleral icterus. No injection or drainage. NECK: Supple, trachea midline. No JVD. CARDIOVASCULAR: Regular rate and rhythm without murmurs, gallops, or rubs. RESPIRATORY: Breath sounds equal bilaterally. No accessory muscle use. GASTROINTESTINAL: Abdomen soft, non-tender, nondistended. MUSCULOSKELETAL: No cyanosis, or edema. BACK: Nontender without obvious deformity. No CVA tenderness. Results - Labs CBC & Chem 7: 04/18/18 06:10 04/18/18 06:10 Laboratory Results - last 24 hr 04/17/18 04/17/18 04/17/18 15:50 15:50 16:17 WBC 6.2 RBC 4.78 Hgb 14.8 Hct 44.7 MCV 93.5 MCH 31.0 MCHC 33.1 RDW 14.9 Plt Count 217 MPV 11.0 Neut % (Auto) 57.9 Lymph % (Auto) 29.9 Pope % (Auto) 10.5 H Eos % (Auto) 0.7 Baso % (Auto) 1.0 Neut # (Auto) 3.6 Lymph # (Auto) 1.9 Pope # (Auto) 0.6 Eos # (Auto) 0.0 Baso # (Auto) 0.1 WBC Differential . Differential Comment Auto diff final PT 10.7 INR 1.1 APTT 27.1 Sodium 138 Potassium 4.4 Chloride 102 Carbon Dioxide 28.0 Anion Gap 8 BUN 14 Creatinine 0.83 Estimated GFR Greater than 89 Random Glucose 83 Calcium 9.3 Phosphorus Magnesium 2.1 Total Bilirubin 0.4 AST 17 ALT 27 Alkaline Phosphatase 135 H Total Creatine Kinase 102 Troponin I Less than 0.02 L Total Protein 7.6 Albumin 4.3 Triglycerides Cholesterol LDL Cholesterol, Calc HDL Cholesterol Cholesterol/HDL Ratio TSH Thyroxine (T4) 11.1 04/17/18 04/17/18 04/17/18 16:17 16:17 16:17 WBC RBC Hgb Hct MCV MCH MCHC RDW Plt Count MPV Neut % (Auto) Lymph % (Auto) Pope % (Auto) Eos % (Auto) Baso % (Auto) Neut # (Auto) Lymph # (Auto) Pope # (Auto) Eos # (Auto) Baso # (Auto) WBC Differential Differential Comment PT 10.7 INR 1.1 APTT 26.4 Sodium 141 Potassium 4.2 Chloride 104 Carbon Dioxide 27.3 Anion Gap 10 BUN 13 Creatinine 0.86 Estimated GFR Greater than 89 Random Glucose 89 Calcium 9.3 Phosphorus Magnesium Total Bilirubin AST ALT Alkaline Phosphatase Total Creatine Kinase Troponin I Less than 0.02 L Total Protein Albumin Triglycerides Cholesterol LDL Cholesterol, Calc HDL Cholesterol Cholesterol/HDL Ratio TSH 2.990 Thyroxine (T4) 04/18/18 04/18/18 04/18/18 06:10 06:10 06:20 WBC 4.4 RBC 4.58 Hgb 14.4 Hct 42.8 MCV 93.5 MCH 31.4 MCHC 33.6 RDW 14.6 Plt Count 194 MPV 11.1 H Neut % (Auto) 34.9 Lymph % (Auto) 51.7 H Pope % (Auto) 10.7 H Eos % (Auto) 1.7 Baso % (Auto) 1.0 Neut # (Auto) 1.5 L Lymph # (Auto) 2.3 Pope # (Auto) 0.5 Eos # (Auto) 0.1 Baso # (Auto) 0.0 WBC Differential . Differential Comment Auto diff final PT 10.9 INR 1.1 APTT Sodium 141 Potassium 4.3 Chloride 104 Carbon Dioxide 28.7 Anion Gap 8 BUN 15 Creatinine 0.77 Estimated GFR Greater than 89 Random Glucose 72 L Calcium 9.1 Phosphorus 3.8 Magnesium 2.2 Total Bilirubin 0.4 AST 18 ALT 24 Alkaline Phosphatase 126 H Total Creatine Kinase 88 Troponin I Less than 0.02 L Total Protein 6.9 D Albumin 3.9 Triglycerides 53 Cholesterol 189 LDL Cholesterol, Calc 128 H HDL Cholesterol 50.7 Cholesterol/HDL Ratio 3.72 TSH Thyroxine (T4) - Imaging Impressions Chest X-Ray 04/17/18 15:32 CONCLUSION: No acute cardiopulmonary process. No significant change from prior. Assessment and Plan - Plan //New onset paroxysmal atrial fibrillation continue on anticoagulation with Lovenox We will get another echocardiogram Consult cardiology Start on metoprolol twice daily Trend troponins and cardiac enzymes Continue on aspirin = 04/18. Discussed with chiropractic care. Continue on aspirin, metoprolol. Follow- up with primary care, cardiology as outpatient. //Anxiety resume home medications at home //Insomnia chronically takes medications for sleep at home //Chronic arthritis with need for multiple surgeries on neck and shoulders //Need for probable chronic anticoagulation //Continue DVT and GI prophylaxis With Lovenox and Pepcid Discharge Planning: [facility] does not warrant warfarin. Discharge home on baby aspirin and metoprolol. Follow-up with primary care. Continue heart healthy diet. Discharge in good condition. Activity ad robert. Please see discharge medication reconciliation for medication list. Follow with primary care and cardiology as outpatient.
[2018-04-18 13:20] VITALS: PULSE 54
[2018-04-18 16:39] LABS: Hemoglobin A1c 5.2 % (4.3-6.0)
--- NOTE | 2018-04-18 22:36 | ECG ---
Date Performed: 04/17/2018 Time Performed: 16:19:10 PTAGE: 63 years EKG: ATRIAL FLUTTER WITH RAPID VENTRICULAR RESPONSE MODERATE ST DEPRESSION ABNORMAL ECG INTERPRE TATION BASED ON A DEFAULT AGE OF 40 YEARS PREVIOUS TRACING : 04/17/2018 15.57 Since the previous tracing, no significant change not ed DOCTOR: Jared Schilling Interpretating Date/Time 04/18/2018 22:32:45
--- NOTE | 2018-04-18 22:37 | ECG ---
Date Performed: 04/17/2018 Time Performed: 15:57:19 PTAGE: 63 years EKG: ATRIAL FIBRILLATION WITH RVR MODERATE ST DEPRESSION ABNORMAL ECG PREVIOUS TRACING : 03/16/2018 09.42 Compared to previous tracing, ATRIAL FIBRILLATION IS NEW DOCTOR: Jared Schilling Interpretating Date/Time 04/18/2018 22:35:14
--- NOTE | 2018-04-19 03:08 | P.CONCA ---
History of Present Illness Primary Care Provider: UNKNOWN Chief Complaint: Palpatations History of Present Illness: Mr. Tripp is a very pleasant 63 year old gentleman with a history of palpations who presents to the ER with a complaints of lightheadedness. The patient reports that he has been experiencing palpations intermittently. He is not currently on any true cardiovascular medications except for ASA. He denies a history of HTN, CHF, SC, Stroke. He was found in the ER to be in afib. He was given po metoprolol and he converted back to sinus rhythmn. Currently, the patient denies any symptoms and is eager to go home. Review of Systems Negative unless mentioned in the HPI. PMFSH - History History Provided By: Patient - Medical History Medical History: Medical History (Last Reviewed 04/18/18 @ 08:22 by Elly Vallecillo) Fracture of left leg Hx of fracture of lower leg Irregular heart beat - Surgical History Surgical History: Surgical History (Last Reviewed 04/18/18 @ 08:22 by Elly Vallecillo) H/O hernia repair H/O vasectomy - Family History Family History: Family History (Last Updated 04/17/18 @ 18:47 by Giuseppe Kelly DO) Other Family history of hypertension - Tobacco History Second Hand Smoke Exposure: No Smoking Status: Never smoker - Alcohol History How Often Do You Have a Drink Containing Alcohol: Never - Substance Use History Substance History: No History of Abuse - Travel History History of Recent Travel: No Recent Travel in the [place] Within the Last 8 Weeks: No Recent Travel Out of the Country Within the Last 8 Weeks: No - Immunization History Tetanus Immunization: >5 Years Hx Influenza Vaccine This Season: Yes Medications and Allergies Allergies Allergy/AdvReac Type Severity Reaction Status Date / Time baclofen Allergy Intermediate Dizziness Verified 04/17/18 16:22 amlodipine AdvReac Intermediate Joint Pain Verified 04/17/18 16:22 atorvastatin AdvReac Intermediate Joint Pain Verified 04/17/18 16:22 pravastatin AdvReac Intermediate Joint Pain Verified 04/17/18 16:22 simvastatin AdvReac Intermediate Joint Pain Verified 04/17/18 16:22 Home Medications Medication Instructions Recorded Confirmed Type aspirin 81 mg PO DAILY 04/17/18 04/17/18 History temazepam 22.5 mg PO PRN PRN 04/17/18 04/17/18 History Exam Vital signs: Vital Signs 04/18/18 04:00 04/18/18 05:00 04/18/18 06:00 Temperature Pulse Rate 52 L 48 L 56 L Respiratory Rate Blood Pressure Pulse Oximetry 04/18/18 07:00 04/18/18 08:00 04/18/18 09:00 Temperature 97.8 F Pulse Rate 58 L 65 63 Respiratory Rate Blood Pressure 119/76 Pulse Oximetry 98 04/18/18 10:02 04/18/18 11:00 04/18/18 12:00 Temperature 97.9 F Pulse Rate 52 L 54 L Respiratory Rate 18 Blood Pressure 123/80 Pulse Oximetry 96 04/18/18 13:00 Temperature Pulse Rate 54 L Respiratory Rate Blood Pressure Pulse Oximetry Intake & Output 04/18/18 04/18/18 04/19/18 06:59 18:59 06:59 Intake Total 820 / 820 Output Total 1100 / 1100 Balance -280 / -280 Weight 92 kg Intake: Oral 820 / 820 Output: Urine 1100 / 1100 Other: Date of Last Bowel Movement 04/17/18 04/17/18 - Constitutional no acute distress - Routine HEENT Exam Head: Present: normocephalic Eye: Present: EOMI ENT: Present: mucous membranes moist - Routine Neck Exam Present: supple - Routine Respiratory Exam Present: CTA bilaterally - Routine Cardiovascular Exam Present: RRR, S1, S2 - Routine Abdominal Exam Present: soft, normoactive bowel sounds - Routine Extremities Exam Absent: edema - Routine Skin Exam Absent: rash - Routine Neurological Exam Present: alert, oriented X3 - Routine Psychiatric Exam Present: normal affect Results 04/18/18 06:10 04/18/18 06:10 Cardiac Enzymes 04/18/18 Range/Units 06:10 AST 18 (15-37) U/L Troponin I Less than 0.02 L (0.02-0.05) ng/mL Coagulation 04/18/18 Range/Units 06:20 PT 10.9 (9.8-11.6) sec Lipids 04/18/18 Range/Units 06:10 Triglycerides 53 (42-150) mg/dL Cholesterol 189 (120-200) mg/dL HDL Cholesterol 50.7 (40.0-60.0) mg/dL Cholesterol/HDL Ratio 3.72 Ratio CBC 04/18/18 Range/Units 06:10 WBC 4.4 (4.0-11.0) th/mm3 RBC 4.58 (4.50-5.90) mil/mm3 Hgb 14.4 (13.0-17.0) gm/dL Hct 42.8 (39.0-51.0) % Plt Count 194 (150-450) th/mm3 Neut # (Auto) 1.5 L (1.8-7.7) th/mm3 Lymph # (Auto) 2.3 (1.0-4.8) th/mm3 [place] # (Auto) 0.5 (0.0-0.9) th/mm3 Eos # (Auto) 0.1 (0.0-0.4) th/mm3 Baso # (Auto) 0.0 (0.0-0.2) th/mm3 Comprehensive Metabolic Panel 04/18/18 Range/Units 06:10 Sodium 141 (136-145) meq/L Potassium 4.3 (3.5-5.1) meq/L Chloride 104 (98-107) meq/L Carbon Dioxide 28.7 (21.0-32.0) meq/L BUN 15 (7-18) mg/dL Creatinine 0.77 (0.60-1.30) mg/dL Calcium 9.1 (8.5-10.1) mg/dL AST 18 (15-37) U/L ALT 24 (12-78) U/L Alkaline Phosphatase 126 H (45-117) U/L Total Protein 6.9 D (6.4-8.2) g/dL Albumin 3.9 (3.4-5.0) g/dL Intake and Output 04/18/18 04/18/18 04/19/18 14:59 22:59 06:59 Other: Date of Last Bowel Movement 04/17/18 EKG interpretations - EKG EKG shows: atrial fibrillation Assessment and Plan - Plan New onset paroxysmal afib -currently in NSR after po Metoprolol. Given [id number] score of 0 , can be placed on ASA 81mg. Would continue Metoprolol and can follow up with PCP/ Cardiology as an outpatient for further testing such as a holter monitor should his symptoms re-occur. Thank you for allowing me to participate.
== END 2018-04-18 14:26 | disposition home or self-care (01) ==
LOC: NEPE 15:22 → NEDA 17:43 → HCIS 20:28
PROVIDERS: ADMIT Internal Medicine; ATTEND Internal Medicine